=== PATIENT | female | born 1990 | race Caucasian/White ===

== ENCOUNTER 2019-07-21 14:42 | Emergency (ER) | payer MEDICAID ==
[~2019-07-21] VITALS: Ht 162.5 cm; Wt 86.2 kg
[2019-07-21] MEDS ORDERED: ROBAXIN-750750 MG PO (16:41)
[2019-07-21] MEDS ORDERED: MEDROL DOSEPAK4 MG PO (16:41)
[2019-07-21] MEDS ORDERED: NAPROSYN500 MG PO (16:41)
== END 2019-07-21 16:45 | disposition home or self-care (01) ==
LOC: ED 14:42
DX: M62.838 Other muscle spasm (principal); X50.0XXA Overexertion from strenuous movement or load, initial encounter; Y93.89 Activity, other specified; Y92.69 Other specified industrial and construction area as the place of occurrence of the external cause; Y99.8 Other external cause status

== ENCOUNTER 2019-07-24 18:28 | Emergency (ER) | payer MEDICAID ==
[~2019-07-24] VITALS: Ht 162.5 cm; Wt 86.2 kg
[~2019-07-24 18:28] MED LIST: MEDROL DOSEPAK4 MG PO; NAPROSYN500 MG PO; ROBAXIN-750750 MG PO
[2019-07-24] MEDS ORDERED: CYCLOBENZAPRINE10 MG PO (20:44)
== END 2019-07-24 20:50 | disposition home or self-care (01) ==
LOC: ED 18:28
DX: S29.012A Strain of muscle and tendon of back wall of thorax, initial encounter (principal); M25.512 Pain in left shoulder; M25.529 Pain in unspecified elbow; Z79.899 Other long term (current) drug therapy; X58.XXXA Exposure to other specified factors, initial encounter; Y93.89 Activity, other specified; Y92.89 Other specified places as the place of occurrence of the external cause; Y99.8 Other external cause status